=== PATIENT | female | born 1940 | race Caucasian/White ===

== ENCOUNTER 2016-07-01 06:25 | Day surgery (SDC) | payer MEDICARE ==
[2016-07-01] MEDS ORDERED: Lactated Ringers 1,000 ML IV SCH (07:00)
[2016-07-01] MEDS ORDERED: Glycopyrrolate 0.2 MG/ML 2 ML SYRINGE IVPUSH ONE (07:30)
[2016-07-01] MEDS ORDERED: Propofol 200 MG/20 ML SDV ONE (07:41)
[2016-07-01] MEDS ORDERED: fentaNYL 100 MCG/2 ML SDV ONE (07:41)
[2016-07-01] MEDS ORDERED: Famotidine 20 MG/2 ML SDV IVPUSH PRN (08:12)
[2016-07-01] MEDS ORDERED: Sodium Chloride 0.9% 1,000 ML IV SCH (08:15)
[2016-07-01] MEDS ORDERED: MVI, Adult with Vitamin K 10 ML, Thiamine 200 MG, Chromium/Copper/Mang/Selen/Zn 1 ML in... IV ONE ×4 (08:30)
[2016-07-01] MEDS ORDERED: Hydrocortisone Sodium Succinate 100 MG/2 ML SDV IVPUSH PRN (08:45)
[2016-07-01] MEDS ORDERED: diphenhydrAMINE 50 MG/ML SDV IVPUSH PRN (08:45)
[2016-07-01] MEDS ORDERED: Cyanocobalamin (Vitamin B12) 1,000 MCG/ML SDV IM ONE (09:00)
[2016-07-01] MEDS ORDERED: Iron Sucrose Complex 500 MG in Sodium Chloride 0.9% 250 ML IV ONE (09:30)
[2016-07-01 13:56] VITALS: BP 173/84
--- NOTE | 2016-07-03 10:03 | OR ---
DATE OF PROCEDURE: 07/01/2016 PREOPERATIVE DIAGNOSIS: Dysphagia, status post gastric bypass. POSTOPERATIVE DIAGNOSIS: Normal upper GI endoscopic examination, status post gastric bypass. OPERATIVE PROCEDURE: Upper GI endoscopy with biopsies of gastric pouch for CLOtest. ANESTHESIA: IV sedation. INDICATION FOR PROCEDURE: This is a 75-year-old status post Allison-en-Y gastric bypass done in 2005 presenting with some dysphagia referable to the mid esophagus. This is particularly problematic with solids. Plan is to proceed with upper GI endoscopy. The patient presently is on Protonix 40 mg a day. Potential risks including bleeding and perforation were discussed, and the patient wishes to proceed. DETAILS OF PROCEDURE: The patient was taken to the operating room and placed in a left lateral decubitus position. IV sedation was administered, after which the upper GI endoscope was passed orally through the length of esophagus into the stomach pouch and from there through the gastrojejunostomy roughly 20 cm into the Allison limb. Overall, the exam was entirely normal. There was no areas of narrowing or other inflammation within the esophagus, EG junction, gastric pouch gastrojejunostomy, or Allison limb and nothing grossly to explain the patient's symptoms. Biopsies were obtained from the gastric pouch, and sent for the CLOtest for H. pylori. Minimal bleeding from the biopsy site was seen and the procedure then concluded. 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 She will be instructed per dietary postoperatively regarding eating somewhat slowly and mixing in some liquids as needed to facilitate passage of the food. Otherwise, recent labs show a low iron and hemoglobin of 9.8. Given this, she will be given some iron today, and we will have her recheck in 1 month for recheck back in [place] with labs to be drawn and possible re-dosing of the iron as needed at that time. Otherwise, continue the present Protonix 40 mg. Adrian Bennett MD /[id number]
== END 2016-07-01 14:00 | disposition home or self-care (01) ==
LOC: JP.SDS 06:25
PROVIDERS: ATTEND Surgery
DX: R13.10 Dysphagia, unspecified (principal); E11.22 Type 2 diabetes mellitus with diabetic chronic kidney disease; I12.9 Hypertensive chronic kidney disease with stage 1 through stage 4 chronic kidney disease, or unspecified chronic kidney disease; N18.9 Chronic kidney disease, unspecified; Z98.84 Bariatric surgery status; Z88.8 Allergy status to other drugs, medicaments and biological substances; Z91.040 Latex allergy status; E66.9 Obesity, unspecified; E78.5 Hyperlipidemia, unspecified; K21.9 Gastro-esophageal reflux disease without esophagitis; F32.9 Major depressive disorder, single episode, unspecified
CPT/HCPCS: 43239; 87081; J1756; J2704; J3010; J3420; J7050; J7120; J3411